=== PATIENT | female | born 1990 | race Caucasian/White ===

== ENCOUNTER 2020-06-05 21:38 | Emergency (ER) | payer OTHER ==
[~2020-06-05] VITALS: Ht 162.6 cm; Wt 75.0 kg
[~2020-06-05 21:38] MED LIST: CALC-1042 PO; FERR325T6 PO; IBUP-2030 PO; PNV1TABL76 PO
[2020-06-05] MEDS ORDERED: ACETAMINOPHEN 500MG TABLET PO NR (23:00)
[2020-06-05] MEDS ORDERED: ACET-2708 PO (23:57)
[2020-06-06 00:14] VITALS: BP 114/71
[2020-06-06 00:37] LABS: HEPATITIS B SURFACE AB < 3.1 mIU/mL
[2020-06-06 00:48] LABS: HEPATITIS B SURFACE ANTIGEN NEGATIVE
== END 2020-06-06 00:15 | disposition home or self-care (01) ==
LOC: ER 21:38
DX: S61.235A Puncture wound without foreign body of left ring finger without damage to nail, initial encounter (principal); X58.XXXA Exposure to other specified factors, initial encounter; Y93.89 Activity, other specified; Y92.89 Other specified places as the place of occurrence of the external cause
CPT/HCPCS: 36415; 99282